=== PATIENT | female | born 1975 | race Caucasian/White ===

== ENCOUNTER 2018-11-20 17:02 | Emergency (ER) | payer MEDICAID ==
[~2018-11-20] VITALS: Ht 157.5 cm; Wt 72.3 kg
[~2018-11-20 17:02] MED LIST: IBUP-1542 PO; PSEU60TA2 PO
[2018-11-20 17:04] VITALS: BP 131/72; PULSE 77; RESP 20; Ht 157.5 cm; Wt 72.3 kg
[2018-11-20] MEDS ORDERED: PSEUDOEPHEDRINE 30 MG TAB PO ONE (18:00)
[2018-11-20] MEDS ORDERED: IBUPROFEN 600 MG TAB PO ONE (18:00)
--- NOTE | 2018-11-20 18:02 | ERD ---
ER Documentation Chief Complaint Chief Complaint RIGHT EAR PAIN X 3 WEEKS HPI This is a 43-year-old female patient who presents emergency room with complaint of right-sided ear intermittent x 3 weeks. Patient states she does have seasonal allergies and has been taking Claritin. She does have Flonase available but has not been taking it. Reports she is also had itchy eyes, runny nose. No fevers, no cough. ROS All systems reviewed and are negative except as per history of present illness. 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 Pseudoephedrine Hcl* (Pseudoephedrine Hcl*) 60 Mg Tablet, 60 MG PO Q6 PRN for CONGESTION for 5 Days, #20 TAB Prov:MEGA AHUJA SENIOR FIELD SERVICE ENGINEER 11/20/18 Allergies Allergies: Coded Allergies: No Known Allergy (Unverified , 11/20/18) PMhx/Soc Medical and Surgical Hx: pt denies Medical Hx, pt denies Surgical Hx Hx Alcohol Use: No Hx Substance Use: No Hx Tobacco Use: No Smoking Status: Never smoker FmHx Family History: No diabetes, No coronary disease, No other Physical Exam Vitals Vital Signs Date Temp Pulse Resp B/P (MAP) Pulse Ox O2 O2 Flow FiO2 Time Delivery Rate 11/20/18 99.7 77 20 131/72 99 17:04 (91) Physical Exam Const: No acute distress Head: Atraumatic Eyes: Normal Conjunctiva, PERRL, EOMI ENT: Normal External Ears, Nose and Mouth. TM left clear, TM right +effusion- no erythema Neck: Full range of motion. No meningismus. No lymphadenopathy Resp: Clear to auscultation bilaterally, no wheezing, no rhonchi Cardio: Regular rate and rhythm, no murmurs Abd: Soft, non tender, non distended. Normal bowel sounds Skin: No petechiae or rashes Back: No midline or flank tenderness, no CVT Neur: Awake and alert, CN II-XII intact, clear speech, steady gait, sensation intact BL Psych: Normal Mood and Affect Results 24 hrs Current Medications Medications Dose Sig/Pepito Start Time Status Last (Trade) Ordered Route PRN Stop Time Admin Dose Reason Admin 60 mg ONCE ONCE 11/20/18 DC 11/20/18 Pseudoephedri PO 18:00 11/20/18 18:17 ne HCl 18:01 (Sudogest) Ibuprofen 600 mg ONCE ONCE 11/20/18 DC 11/20/18 (Motrin) PO 18:00 11/20/18 18:15 18:01 Procedures/MDM PROCEDURES/MDM -Medications: Pseudafed, ibuprofen Patient tolerated medication well with no adverse reactions. Patient reported improvement in pain. MDM: Patient's ENT symptoms have stabilized while in the department and are appropriate for outpatient work up. Exam and w/u not consistent w/ deep space infection of the face, throat, or mastoids. No evidence of impending TM rupture, airway compromise, or meningitis. Caregivers instructed on use of decongestant, flonase, and analgesic. Instructed to follow-up with primary care provider in 3-5 days for reassessment. Instructed to return to emergency department immediately for worsening or changing of symptoms. DISPOSITION and PLAN: RX: Pseudafed, ibuprofen The patient has been discharge home to follow-up with community physician. Departure Diagnosis: Primary Impression: Acute effusion of right ear Condition: Stable Patient Instructions: Common Middle Ear Problems Ref[facility] Usted se dong hecho un examen mdico de control que le indica que no est en alyssa condicin que requiera tratamiento urgente en el Departamento de Emergencia. Un estudio ms profundo y el tratamiento de richard condicin pueden esperar sin ningn riesgo hasta que usted sea atendida/o en el consultorio de richard mdico o alyssa clnica. Es responsabilidad suya arreglar alyssa yolande para el seguimiento del janna. MANEJO DE CONDICIONES NO URGENTES EN EL FUTURO 1) Si usted tiene un mdico de atencin primaria: Usted debera llamar a richard mdico de atencin primaria antes de venir al departamento de emergencia. Despus de las horas de consultorio, richard doctor o richard asociado/a est disponible por telfono. El mdico o enfermero de [place] en el servicio telefnico puede asesorarle por sophie medio para atender el problema, o janna contrario se puede programar alyssa yolande. 2) Si usted no tiene un mdico de atencin primaria: Llame al mdico o clnica de referencia que aparece abajo humera las horas de consultorio para hacer alyssa yolande para que le vean. CLINICAS: [facility] [phone] [facility] [phone] [address] [facility] [phone] [place] [phone] [place] [address] [phone] [facility] [phone] [address] [facility]. [facility] () Usted se dong hecho un examen mdico de control que le indica que no est en alyssa condicin que requiera tratamiento urgente en el Departamento de Emergencia. Un estudio ms profundo y el tratamiento de richard condicin pueden esperar sin ningn riesgo hasta que usted sea atendida/o en el consultorio de richard mdico o alyssa clnica. Es responsabilidad suya arreglar alyssa yolande para el seguimiento del janna. MANEJO DE CONDICIONES NO URGENTES EN EL FUTURO 1) Si usted tiene un mdico de atencin primaria: Usted debera llamar a richard mdico de atencin primaria antes de venir al departamento de emergencia. Despus de las horas de consultorio, richard doctor o richard asociado/a est disponible por telfono. El mdico o enfermero de [place] en el servicio telefnico puede asesorarle por sophie medio para atender el problema, o janna contrario se puede programar alyssa yolande. 2) Si usted no tiene un mdico de atencin primaria: Llame al mdico o condado institucions de referencia que aparece abajo humera las horas de consultorio para hacer alyssa yolande para que le vean. SI USTED NO PUEDE PAGAR PARA LENORA UN MEDICO puede ir a: [facility] [phone] [place] [address] [facility] [address] [place] [address] [facility] [address] [place] [address] [facility] [address] [place], [place] [id number] Additional Instructions: Llame al doctor nombrado abajo (Referral Sources) MAANA y jasmin alyssa YOLANDE PARA DENTRO DE ALYSSA SEMANA. Dgale a la secretaria que nosotros le instruimos hacer esta yolande.Avise o llame si richard condicin se empeora antes de la yolande. MEGA AHUJA NP Nov 20, 2018 18:02
== END 2018-11-20 18:43 | disposition home or self-care (01) ==
LOC: FTE 17:02
DX: H74.8X1 Other specified disorders of right middle ear and mastoid (principal)
CPT/HCPCS: Z7610 ×2; 99282